=== PATIENT | male | born 1955 | race Caucasian/White ===

== ENCOUNTER 2020-04-21 09:46 | Inpatient (IN) | payer BC ==
[2020-04-21 09:59] VITALS: BMI 36.6
[2020-04-21] MEDS ORDERED: AZITHROMYCIN IVPB 500 MG in DEXTROSE 5%-WATER - 250 ML IVPB ONE (11:27)
[2020-04-21] MEDS ORDERED: ACETAMINOPHEN 1000 MG/100 ML VIAL (NON FORMULARY) IVPB ONE (11:27)
[2020-04-21] MEDS ORDERED: CEFTRIAXONE 1 GM/50 ML BAG ONE (11:52)
[2020-04-21] MEDS ORDERED: ACETAMINOPHEN INJECTION 100 ML IVPB ONE (11:52)
[2020-04-21] MEDS ORDERED: AZITHROMYCIN IVPB 500 MG/250 ML BAG IVPB ONE (11:52)
[2020-04-21 12:07] LABS: VENOUS BASE EXCESS 2.9 mmol/L (-2-2); VENOUS O2 SATURATION 29.6 % (70-80); VENOUS PCO2 56.7 mmHg (38-52); VENOUS PH 7.346 (7.310-7.410)
[2020-04-21 12:09] LABS: BASO % 0.2 % (0-2.0); EOS % 0.3 % (0-4.5); HEMATOCRIT 47.2 % (35.4-49); HEMOGLOBIN 15.8 GM/dL (11.7-16.9); LYMPH % 13.9 % (8-40); MCH 28.7 pg (25.7-33.7); MCHC 33.3 g/dl (32.0-35.9); MEAN CELL VOLUME 86.1 fl (80-96); MEAN PLT VOLUME 8.8 fl (7.5-11.1); MONO % 7.2 % (3.8-10.2); NEUT % 78.4 % (42.8-82.8); PLATELET COUNT 140 K/MM3 (134-434); RBC 5.49 M/mm3 (4.00-5.60); RDW 14.2 % (11.9-15.9); WHITE BLOOD COUNT 6.8 K/mm3 (4.0-10.0)
[2020-04-21 12:14] LABS: INR 1.23 (0.83-1.09); PROTHROMBIN TIME (PATIENT) 14.8 SEC (9.7-13.0)
[2020-04-21 12:17] LABS: ACTIVATED PTT 29.2 SECONDS (25.2-36.5)
[2020-04-21 12:44] LABS: CHLORIDE 99 mmol/L (98-107); POTASSIUM 3.4 mmol/L (3.5-5.1); SODIUM 137 mmol/L (136-145)
[2020-04-21 12:46] LABS: CALCIUM 8.2 mg/dL (8.5-10.1)
[2020-04-21 12:47] LABS: ALBUMIN 3.8 g/dl (3.4-5.0); ANION GAP 8 MMOL/L (8-16); BLOOD UREA NITROGEN 14.3 mg/dL (7-18); CO2 30 mmol/L (21-32); GLUCOSE,RANDOM 87 mg/dL (74-106)
[2020-04-21 12:49] LABS: BILIRUBIN,DIRECT 0.3 mg/dL (0.0-0.2); SGPT/ALT 40 U/L (13-61)
[2020-04-21 12:50] LABS: SGOT/AST 34 U/L (15-37)
[2020-04-21 12:51] LABS: TOT PROT 7.8 g/dl (6.4-8.2)
[2020-04-21 12:52] LABS: ALK PHOS 53 U/L (45-117); BILIRUBIN,TOTAL 0.7 mg/dL (0.2-1)
[2020-04-21 12:57] LABS: LDH 345 U/L (87-246)
[2020-04-21] MEDS ORDERED: methylPREDNISolone NA SUCC 125 MG/2 ML VIAL IVPUSH ONE (13:40)
[2020-04-21] MEDS ORDERED: FAMOTIDINE 20 MG/50 ML IVPB 20 MG/50 ML MG IVPB ONE ×2 (13:40→13:53)
[2020-04-21] MEDS ORDERED: methylPREDNISolone NA SUCC 125 MG/2 ML VIAL ONE (13:53)
[2020-04-21 14:33] LABS: URINE APPEARANCE CLEAR; URINE BILIRUBIN NEGATIVE (NEGATIVE); URINE COLOR YELLOW; URINE GLUCOSE (UA) NEGATIVE (NEGATIVE); URINE KETONE NEGATIVE (NEGATIVE); URINE LEUK ESTERASE NEGATIVE (NEGATIVE); URINE NITRITE NEGATIVE (NEGATIVE); URINE PROTEIN NEGATIVE (NEGATIVE); URINE UROBILINOGEN 0.2 mg/dL (0.2-1.0)
[2020-04-21] MEDS ORDERED: ACETAMINOPHEN 500 MG TABLET (FP) PO ONE (15:52)
[2020-04-21] MEDS ORDERED: ACETAMINOPHEN 325 MG TABLET (FP) ONE (16:01)
[2020-04-21] MEDS ORDERED: ACETAMINOPHEN 325 MG TABLET (FP) PO PRN (17:38)
[2020-04-21] MEDS ORDERED: POTASSIUM CHLORIDE TABS 20 MEQ TABLET.ER (FP) PO ONE (18:02)
[2020-04-21] MEDS: APIXABAN 5 MG TABLET PO SCH (21:15)
[2020-04-21] MEDS: ASCORBIC ACID 500 MG TABLET (FP) PO SCH (21:15)
[2020-04-22] MEDS ORDERED: guaiFENesin 200 MG/10 ML 10 ML UNIT-DOSE CUPS PO ONE (05:18)
[2020-04-22] MEDS: BENZOCAINE/MENTH/CETYLPYRD CL 1 EACH LOZENGE MM PRN ×3 (05:32→15:07)
[2020-04-22 06:28] LABS: HEMATOCRIT 46.1 % (35.4-49); HEMOGLOBIN 15.2 GM/dL (11.7-16.9); MCH 28.1 pg (25.7-33.7); MEAN CELL VOLUME 85.2 fl (80-96); MEAN PLT VOLUME 8.9 fl (7.5-11.1); PLATELET COUNT 155 K/MM3 (134-434); RBC 5.41 M/mm3 (4.00-5.60); WHITE BLOOD COUNT 8.1 K/mm3 (4.0-10.0)
[2020-04-22 06:38] LABS: INR 1.4 (0.83-1.09); PROTHROMBIN TIME (PATIENT) 16.8 SEC (9.7-13.0)
[2020-04-22 06:41] LABS: POTASSIUM 3.6 mmol/L (3.5-5.1)
[2020-04-22 06:45] LABS: ALBUMIN 3.3 g/dl (3.4-5.0); BLOOD UREA NITROGEN 15.2 mg/dL (7-18); MAGNESIUM 2.4 mg/dL (1.8-2.4)
[2020-04-22] MEDS ORDERED: PT OWN MED DRAWER 7, Y5N ONE ×2 (06:47→11:35)
[2020-04-22 06:48] LABS: CREATININE 0.9 mg/dL (0.55-1.3)
[2020-04-22 06:49] LABS: PHOSPHOROUS 2.4 mg/dL (2.5-4.9)
[2020-04-22 06:50] LABS: BILIRUBIN,TOTAL 0.6 mg/dL (0.2-1); TOT PROT 7.4 g/dl (6.4-8.2)
[2020-04-22] MEDS ORDERED: DEXTROSE 5%-WATER - 50 ML IVPB ONE (09:45)
[2020-04-22] MEDS ORDERED: cefTRIAXone SODIUM 1 GM VIAL ONE (09:45)
[2020-04-22] MEDS: APIXABAN 5 MG TABLET PO SCH ×2 (10:16→21:53)
[2020-04-22] MEDS: ASCORBIC ACID 500 MG TABLET (FP) PO SCH ×2 (10:16→21:52)
[2020-04-22] MEDS: CEFTRIAXONE 1 GM in DEXTROSE 5%-WATER - 50 ML IVPB SCH (10:16)
[2020-04-22] MEDS: DEXAMETHASONE SOD PHOSPHATE 10 MG/1 ML VIAL IVPUSH SCH (10:16)
[2020-04-22] MEDS: CHOLECALCIFEROL (VIT D3) 1,000 UNIT (25 MCG) TABLET PO SCH (10:16)
[2020-04-22] MEDS: ZINC SULFATE 220 MG CAPSULE (FP) PO SCH (10:16)
[2020-04-22] MEDS ORDERED: SODIUM PHOSPHATE - 15 MM in SODIUM CHLORIDE 250 ML IVPB ONE (16:54)
[2020-04-23 07:37] LABS: POTASSIUM 3.8 mmol/L (3.5-5.1)
[2020-04-23 07:40] LABS: BASO % 0.2 % (0-2.0); HEMATOCRIT 41.6 % (35.4-49); HEMOGLOBIN 13.9 GM/dL (11.7-16.9); LYMPH % 4.8 % (8-40); MCH 28.6 pg (25.7-33.7); MCHC 33.5 g/dl (32.0-35.9); MEAN CELL VOLUME 85.4 fl (80-96); MEAN PLT VOLUME 8.7 fl (7.5-11.1); MONO % 4.1 % (3.8-10.2); NEUT % 90.9 % (42.8-82.8); PLATELET COUNT 167 K/MM3 (134-434); RBC 4.87 M/mm3 (4.00-5.60); RDW 13.5 % (11.9-15.9); WHITE BLOOD COUNT 16.9 K/mm3 (4.0-10.0)
[2020-04-23 07:47] LABS: CALCIUM 8.1 mg/dL (8.5-10.1)
[2020-04-23 07:48] LABS: BLOOD UREA NITROGEN 16.4 mg/dL (7-18)
[2020-04-23 07:51] LABS: CREATININE 0.8 mg/dL (0.55-1.3)
[2020-04-23 07:52] LABS: TOT PROT 6.6 g/dl (6.4-8.2)
[2020-04-23 07:55] LABS: BILIRUBIN,TOTAL 0.4 mg/dL (0.2-1)
[2020-04-23] MEDS ORDERED: PT OWN MED DRAWER 7, Y5N ONE (10:03)
[2020-04-23] MEDS ORDERED: cefTRIAXone SODIUM 1 GM VIAL ONE (10:04)
[2020-04-23] MEDS ORDERED: DEXTROSE 5%-WATER - 50 ML IVPB ONE (10:04)
[2020-04-23] MEDS: ZINC SULFATE 220 MG CAPSULE (FP) PO SCH (10:15)
[2020-04-23] MEDS: CEFTRIAXONE 1 GM in DEXTROSE 5%-WATER - 50 ML IVPB SCH (10:15)
[2020-04-23] MEDS: CHOLECALCIFEROL (VIT D3) 1,000 UNIT (25 MCG) TABLET PO SCH (10:15)
[2020-04-23] MEDS: ASCORBIC ACID 500 MG TABLET (FP) PO SCH ×2 (10:15→21:08)
[2020-04-23] MEDS: APIXABAN 5 MG TABLET PO SCH ×2 (10:15→21:09)
[2020-04-23] MEDS: DEXAMETHASONE SOD PHOSPHATE 10 MG/1 ML VIAL IVPUSH SCH (11:03)
[2020-04-23] MEDS ORDERED: REMDESIVIR 200 MG in SODIUM CHLORIDE 210 ML IVPB ONE (11:23)
[2020-04-24 07:53] LABS: HEMATOCRIT 41.5 % (35.4-49); HEMOGLOBIN 13.9 GM/dL (11.7-16.9); LYMPH % 7.3 % (8-40); MCH 28.8 pg (25.7-33.7); MCHC 33.5 g/dl (32.0-35.9); MEAN CELL VOLUME 85.9 fl (80-96); MEAN PLT VOLUME 8.9 fl (7.5-11.1); MONO % 5.2 % (3.8-10.2); NEUT % 87.5 % (42.8-82.8); PLATELET COUNT 191 K/MM3 (134-434); RBC 4.83 M/mm3 (4.00-5.60); RDW 14.1 % (11.9-15.9); WHITE BLOOD COUNT 13.3 K/mm3 (4.0-10.0)
[2020-04-24 08:05] LABS: POTASSIUM 3.8 mmol/L (3.5-5.1)
[2020-04-24 08:09] LABS: ALBUMIN 2.9 g/dl (3.4-5.0); CALCIUM 8.2 mg/dL (8.5-10.1)
[2020-04-24 08:12] LABS: BILIRUBIN,TOTAL 0.4 mg/dL (0.2-1); CREATININE 0.7 mg/dL (0.55-1.3)
[2020-04-24 08:13] LABS: TOT PROT 6.4 g/dl (6.4-8.2)
[2020-04-24] MEDS ORDERED: PT OWN MED DRAWER 7, Y5N ONE (09:08)
[2020-04-24 09:17] LABS: ERYTHROCYTE SEDIMENTATION RATE 43 mm/hr (0-20)
[2020-04-24 09:28] LABS: ANISOCYTOSIS 0; MACROCYTOSIS 0; PLATELET ESTIMATE NORMAL
[2020-04-24] MEDS: ZINC SULFATE 220 MG CAPSULE (FP) PO SCH (10:00)
[2020-04-24] MEDS: APIXABAN 5 MG TABLET PO SCH ×2 (10:01→22:29)
[2020-04-24] MEDS: CHOLECALCIFEROL (VIT D3) 1,000 UNIT (25 MCG) TABLET PO SCH (10:01)
[2020-04-24] MEDS: BENZOCAINE/MENTH/CETYLPYRD CL 1 EACH LOZENGE MM PRN (10:01)
[2020-04-24] MEDS: ASCORBIC ACID 500 MG TABLET (FP) PO SCH ×2 (10:01→22:29)
[2020-04-24] MEDS: DEXAMETHASONE SOD PHOSPHATE 10 MG/1 ML VIAL IVPUSH SCH (10:01)
[2020-04-24] MEDS: REMDESIVIR 100 MG in SODIUM CHLORIDE 230 ML IVPB SCH (12:56)
[2020-04-25 06:18] LABS: BASO % 0.3 % (0-2.0); HEMATOCRIT 43.6 % (35.4-49); HEMOGLOBIN 14.2 GM/dL (11.7-16.9); LYMPH % 10.2 % (8-40); MCH 27.9 pg (25.7-33.7); MCHC 32.5 g/dl (32.0-35.9); MEAN CELL VOLUME 85.7 fl (80-96); MEAN PLT VOLUME 8.5 fl (7.5-11.1); NEUT % 84.5 % (42.8-82.8); PLATELET COUNT 236 K/MM3 (134-434); RBC 5.09 M/mm3 (4.00-5.60); RDW 14.1 % (11.9-15.9); WHITE BLOOD COUNT 11.3 K/mm3 (4.0-10.0)
[2020-04-25 06:29] LABS: POTASSIUM 3.9 mmol/L (3.5-5.1)
[2020-04-25 06:31] LABS: BLOOD UREA NITROGEN 20.6 mg/dL (7-18); CALCIUM 8.5 mg/dL (8.5-10.1)
[2020-04-25 06:34] LABS: CREATININE 0.7 mg/dL (0.55-1.3)
[2020-04-25 07:22] LABS: ERYTHROCYTE SEDIMENTATION RATE 34 mm/hr (0-20)
[2020-04-25] MEDS: REMDESIVIR 100 MG in SODIUM CHLORIDE 230 ML IVPB SCH (09:30)
[2020-04-25] MEDS: BENZOCAINE/MENTH/CETYLPYRD CL 1 EACH LOZENGE MM PRN ×2 (09:31→22:18)
[2020-04-25] MEDS: ZINC SULFATE 220 MG CAPSULE (FP) PO SCH (09:31)
[2020-04-25] MEDS: DEXAMETHASONE SOD PHOSPHATE 10 MG/1 ML VIAL IVPUSH SCH (09:31)
[2020-04-25] MEDS: PANTOPRAZOLE 40 MG TABLET PO SCH (09:31)
[2020-04-25] MEDS: ASCORBIC ACID 500 MG TABLET (FP) PO SCH ×2 (09:31→22:18)
[2020-04-25] MEDS: APIXABAN 5 MG TABLET PO SCH ×2 (09:31→22:18)
[2020-04-25] MEDS: CHOLECALCIFEROL (VIT D3) 1,000 UNIT (25 MCG) TABLET PO SCH (09:31)
[2020-04-25 09:42] LABS: ANISOCYTOSIS 1+; MACROCYTOSIS 0; OVALOCYTE 1+; PLATELET ESTIMATE NORMAL
[2020-04-26 06:59] LABS: BASO % 0.2 % (0-2.0); EOS % 0.2 % (0-4.5); HEMATOCRIT 44.7 % (35.4-49); HEMOGLOBIN 14.8 GM/dL (11.7-16.9); LYMPH % 8.9 % (8-40); MCH 28.2 pg (25.7-33.7); MCHC 33.1 g/dl (32.0-35.9); MEAN PLT VOLUME 8.1 fl (7.5-11.1); MONO % 4.9 % (3.8-10.2); NEUT % 85.8 % (42.8-82.8); PLATELET COUNT 280 K/MM3 (134-434); RBC 5.26 M/mm3 (4.00-5.60); RDW 13.8 % (11.9-15.9); WHITE BLOOD COUNT 11.9 K/mm3 (4.0-10.0)
[2020-04-26 07:18] LABS: POTASSIUM 3.9 mmol/L (3.5-5.1)
[2020-04-26 07:22] LABS: CALCIUM 8.5 mg/dL (8.5-10.1)
[2020-04-26 07:23] LABS: BLOOD UREA NITROGEN 19.2 mg/dL (7-18)
[2020-04-26 07:26] LABS: CREATININE 0.8 mg/dL (0.55-1.3)
[2020-04-26 08:33] LABS: ANISOCYTOSIS 1+; MACROCYTOSIS 0; PLATELET ESTIMATE NORMAL
[2020-04-26] MEDS ORDERED: PT OWN MED DRAWER 7, Y5N ONE (10:50)
[2020-04-26] MEDS: ZINC SULFATE 220 MG CAPSULE (FP) PO SCH (10:57)
[2020-04-26] MEDS: REMDESIVIR 100 MG in SODIUM CHLORIDE 230 ML IVPB SCH (10:57)
[2020-04-26] MEDS: CHOLECALCIFEROL (VIT D3) 1,000 UNIT (25 MCG) TABLET PO SCH (10:57)
[2020-04-26] MEDS: ASCORBIC ACID 500 MG TABLET (FP) PO SCH ×2 (10:57→22:07)
[2020-04-26] MEDS: APIXABAN 5 MG TABLET PO SCH ×2 (10:57→22:07)
[2020-04-26] MEDS: PANTOPRAZOLE 40 MG TABLET PO SCH (10:57)
[2020-04-26] MEDS: DEXAMETHASONE SOD PHOSPHATE 10 MG/1 ML VIAL IVPUSH SCH (10:58)
[2020-04-27 07:49] LABS: CALCIUM 8.5 mg/dL (8.5-10.1)
[2020-04-27 07:53] LABS: CREATININE 0.8 mg/dL (0.55-1.3)
[2020-04-27] MEDS: CHOLECALCIFEROL (VIT D3) 1,000 UNIT (25 MCG) TABLET PO SCH (10:05)
[2020-04-27] MEDS: PANTOPRAZOLE 40 MG TABLET PO SCH (10:05)
[2020-04-27] MEDS: DEXAMETHASONE SOD PHOSPHATE 10 MG/1 ML VIAL IVPUSH SCH (10:05)
[2020-04-27] MEDS: ASCORBIC ACID 500 MG TABLET (FP) PO SCH ×2 (10:05→22:21)
[2020-04-27] MEDS: ZINC SULFATE 220 MG CAPSULE (FP) PO SCH (10:05)
[2020-04-27] MEDS: REMDESIVIR 100 MG in SODIUM CHLORIDE 230 ML IVPB SCH (10:06)
[2020-04-27] MEDS: APIXABAN 5 MG TABLET PO SCH ×2 (10:06→22:22)
[2020-04-27] MEDS ORDERED: guaiFENesin 200 MG/10 ML 10 ML UNIT-DOSE CUPS PO PRN (10:38)
[2020-04-28 06:41] VITALS: BP 166/84; TEMP 97.4
[2020-04-28 08:14] LABS: BASO % 0.2 % (0-2.0); EOS % 0.5 % (0-4.5); HEMOGLOBIN 15.3 GM/dL (11.7-16.9); LYMPH % 10.3 % (8-40); MCH 28.1 pg (25.7-33.7); MCHC 33.1 g/dl (32.0-35.9); MEAN CELL VOLUME 84.8 fl (80-96); MEAN PLT VOLUME 8.2 fl (7.5-11.1); MONO % 5.3 % (3.8-10.2); NEUT % 83.7 % (42.8-82.8); PLATELET COUNT 336 K/MM3 (134-434); RBC 5.43 M/mm3 (4.00-5.60); RDW 13.8 % (11.9-15.9); WHITE BLOOD COUNT 14.3 K/mm3 (4.0-10.0)
[2020-04-28 08:43] LABS: CALCIUM 8.8 mg/dL (8.5-10.1)
[2020-04-28 08:44] LABS: ALBUMIN 3.2 g/dl (3.4-5.0); BLOOD UREA NITROGEN 23.3 mg/dL (7-18)
[2020-04-28 08:46] LABS: CREATININE 0.9 mg/dL (0.55-1.3)
[2020-04-28 08:48] LABS: BILIRUBIN,TOTAL 0.8 mg/dL (0.2-1)
[2020-04-28] MEDS: PANTOPRAZOLE 40 MG TABLET PO SCH (10:45)
[2020-04-28] MEDS: APIXABAN 5 MG TABLET PO SCH (10:45)
[2020-04-28] MEDS: CHOLECALCIFEROL (VIT D3) 1,000 UNIT (25 MCG) TABLET PO SCH (10:45)
[2020-04-28] MEDS: ASCORBIC ACID 500 MG TABLET (FP) PO SCH (10:45)
[2020-04-28] MEDS: ZINC SULFATE 220 MG CAPSULE (FP) PO SCH (10:45)
[2020-04-28 11:00] LABS: ANISOCYTOSIS 2+; MACROCYTOSIS 0; PLATELET ESTIMATE NORMAL
[2020-04-28] MEDS ORDERED: predniSONE 20 MG TABLET (UD) PO ONE (12:35)
[2020-04-28] MEDS: DEXAMETHASONE SOD PHOSPHATE 10 MG/1 ML VIAL IVPUSH SCH (13:08)
[2020-04-28 14:07] VITALS: PULSE 98
== END 2020-04-28 14:22 | disposition home or self-care (01) | DRG 177 ==
LOC: JER 09:46 → JERBED 13:48 → J7W 17:28
PROVIDERS: ADMIT Student in an Organized Health Care Education/Training Program; ATTEND Student in an Organized Health Care Education/Training Program
PROC: 8E0ZXY6 Isolation (ICD-10-PCS; 2020-04-21)
PROC: XW13325 Transfusion of Convalescent Plasma (Nonautologous) into Peripheral Vein, Percutaneous Approach, New Technology Group 5 (ICD-10-PCS; 2020-04-22)
PROC: XW033E5 Introduction of Remdesivir Anti-infective into Peripheral Vein, Percutaneous Approach, New Technology Group 5 (ICD-10-PCS; principal; 2020-04-23)
DX: U07.1 COVID-19 (principal); J96.01 Acute respiratory failure with hypoxia; J12.89 Other viral pneumonia; E11.9 Type 2 diabetes mellitus without complications; E83.39 Other disorders of phosphorus metabolism; Z86.718 Personal history of other venous thrombosis and embolism; E66.9 Obesity, unspecified; Z68.36 Body mass index [BMI] 36.0-36.9, adult; Z85.46 Personal history of malignant neoplasm of prostate
CPT/HCPCS: 36415; 36430; 71045-TC-FY; 80048; 80053; 81003; 82248; 82550; 82553; 82728; 82803; 82962; 83036; 83605; 83615; 83735; 84100; 84484; 85025; 85027; 85379; 85610; 85651; 85730; 86140; 86850; 86900; 86901; 87040; 87070; 87086; 87107; 87205; 87804; 87899; 93005; 93010; 94761; 99285-25; C9803; J0131; J1100; P9017; U0003

== ENCOUNTER 2022-04-12 01:03 | Emergency (ER) | payer OTHER, BC ==
[2022-04-12 01:15] VITALS: BP 135/77; PULSE 67; RESP 22; TEMP 97.8; BMI 37.5
[2022-04-12] MEDS ORDERED: LIDOCAINE 5% TOPICAL PATCH TP ONE (02:58)
[2022-04-12] MEDS ORDERED: ACETAMINOPHEN 500 MG TABLET (FP) PO ONE (02:58)
[2022-04-12] MEDS ORDERED: LIDOCAINE 5% TOPICAL PATCH ONE (03:01)
[2022-04-12] MEDS ORDERED: ACETAMINOPHEN 500 MG TABLET (FP) ONE (03:02)
[2022-04-12] MEDS ORDERED: DEXAMETHASONE 4 MG TABLET (FP) PO ONE (03:20)
[2022-04-12] MEDS ORDERED: DEXAMETHASONE 4 MG TABLET (FP) ONE (03:42)
[2022-04-12] MEDS ORDERED: LIDOCAINE PATCH REMOVAL MC SCH (22:00)
== END 2022-04-12 05:10 | disposition home or self-care (01) ==
LOC: JER 01:03
DX: M54.50 Low back pain, unspecified (principal)
CPT/HCPCS: 71046-TC-FY; 99284-25

== ENCOUNTER 2023-11-02 02:49 | Emergency (ER) | payer OTHER, BC ==
[2023-11-02 02:57] VITALS: BP 169/82; PULSE 86; RESP 17; TEMP 98.5; BMI 39.1
[2023-11-02] MEDS ORDERED: LIDOCAINE VISCOUS 2% ORAL/TOP 15 ML UNIT-DOSE CUP ONE (03:59)
[2023-11-02] MEDS ORDERED: FAMOTIDINE 20 MG TABLET ONE (04:00)
[2023-11-02] MEDS: FAMOTIDINE 20 MG TABLET PO ONE (04:14)
[2023-11-02] MEDS: LIDOCAINE VISCOUS 2% ORAL/TOP 15 ML UNIT-DOSE CUP MM ONE (04:14)
== END 2023-11-02 05:17 | disposition home or self-care (01) ==
LOC: JER 02:49
DX: R05.9 Cough, unspecified (principal); R07.0 Pain in throat; R11.0 Nausea; Z20.822 Contact with and (suspected) exposure to COVID-19
CPT/HCPCS: 0241U-QW; 87651; 99283-25